=== PATIENT | female | born 1935 | race Caucasian/White ===

== ENCOUNTER 2021-09-15 01:49 | Emergency (ER) | payer MEDICARE, OTHER ==
[~2021-09-15] VITALS: Ht 157.5 cm; Wt 50.4 kg
[~2021-09-15 01:49] MED LIST: ATORVASTATIN CA40 MG PO; CLOPIDOGREL75 MG PO; FEROSUL325 MG PO; LEVOTHYROXINE112 MCG PO; LOSARTAN POTASS25 MG PO; METOPROLOL SUCC25 MG PO; POTASSIUM CHLO10 ME2 PO; TORSEMIDE20 MG PO
--- OUTSIDE RECORDS SUMMARY | 2021-09-15 01:56 | XMS ---
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 EMagalie VISIT COUNT (12 MO.) [address] [place], [place] [address] TOTAL 3 NOTE: Visits indicate total known visits. ED/UCC VISIT TRACKING (12 MO.) 09/15/2021 01:49 [facility] [place] TYPE: Emergency COMPLAINT: - CHEST PAIN 09/13/2021 16:46 [facility] Amara [place] TYPE: Emergency DIAGNOSES: - Chest Pain - Dyspnea, unspecified - Shortness of Breath 02/24/2021 00:20 [facility] [place] [place] TYPE: Emergency COMPLAINT: - VOMITING DIAGNOSES: - Nausea with vomiting, unspecified INPATIENT VISIT TRACKING (12 MO.) No inpatient visits to display in this time frame [email or web address]
[2021-09-15] MEDS ORDERED: HYDROCODON-ACE1 EA10 PO (03:21)
[2021-09-15] MEDS ORDERED: SOAANZ40 MG PO (03:21)
[2021-09-15] MEDS ORDERED: ONDANSETRON ODT8 MG PO (03:30)
--- NOTE | 2021-09-16 13:43 | EKG ---
[facility] [address] [facility] [place] [address] Signed Sinus rhythm with premature supraventricular complexes and with occasional premature ventricular complexes Minimal voltage criteria for LVH, may be normal variant ( [place] product ) Prolonged QT Abnormal ECG When compared with ECG of 24-FEB-2021 00:33, No significant change was found Confirmed by RENATE CASAS MD ([id number]) on 09/16/2021 1:43:45 PM Electronically Signed By: RENATE CASAS MD 09/16/21 1343 PATIENT NAME: GOLDIE HILTON Electrocardiogram DATE OF : 33 PHYSICIAN: RENATE CASAS MD REPORT #: [id number] REPORT IS CONFIDENTIAL AND NOT TO BE RELEASED WITHOUT AUTHORIZATION
== END 2021-09-15 05:38 | disposition home or self-care (01) ==
LOC: ED 01:49
DX: I50.9 Heart failure, unspecified (principal); K92.2 Gastrointestinal hemorrhage, unspecified; Z51.5 Encounter for palliative care; E03.9 Hypothyroidism, unspecified; E11.9 Type 2 diabetes mellitus without complications; I25.10 Atherosclerotic heart disease of native coronary artery without angina pectoris; Z79.899 Other long term (current) drug therapy
CPT/HCPCS: 36415; 71045; 80053; 83735; 83880; 84484; 85025; 85610; 85730; 87502; 93005; 93010; 96374; 96375; 99285-25; A9270; J1940; J2270; J2405; U0003

== ENCOUNTER 2021-09-15 08:42 | Emergency (ER) | payer MEDICARE, OTHER ==
[~2021-09-15] VITALS: Ht 157.5 cm; Wt 50.3 kg
[~2021-09-15 08:42] MED LIST changes: +HYDROCODON-ACE1 EA10 PO; +ONDANSETRON ODT8 MG PO; +SOAANZ40 MG PO
--- OUTSIDE RECORDS SUMMARY | 2021-09-15 08:50 | XMS ---
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 EMagalie VISIT COUNT (12 MO.) [address] [place], [place] [address] TOTAL 4 NOTE: Visits indicate total known visits. ED/UCC VISIT TRACKING (12 MO.) 09/15/2021 08:43 [facility] TYPE: Emergency COMPLAINT: - FALL, MULTIPLE INJURIES 09/15/2021 01:49 [facility] [place] TYPE: Emergency COMPLAINT: - CHEST PAIN 09/13/2021 16:46 [facility] [place] TYPE: Emergency DIAGNOSES: - Chest Pain - Dyspnea, unspecified - Shortness of Breath 02/24/2021 00:20 [facility] [place] TYPE: Emergency COMPLAINT: - VOMITING DIAGNOSES: - Nausea with vomiting, unspecified INPATIENT VISIT TRACKING (12 MO.) No inpatient visits to display in this time frame [email or web address]
--- NOTE | 2021-09-16 13:44 | EKG ---
[facility] [address] [facility] [place] [address] Signed Atrial fibrillation Minimal voltage criteria for LVH, may be normal variant ( [place] product ) Abnormal ECG When compared with ECG of 15-SEP-2021 02:24, (Unconfirmed) Atrial fibrillation has replaced Sinus rhythm Nonspecific T wave abnormality, worse in Lateral leads Confirmed by RENATE CASAS MD ([id number]) on 09/16/2021 1:43:48 PM Electronically Signed By: RENATE CASAS MD 09/16/21 1344 PATIENT NAME: GOLDIE HILTON Electrocardiogram DATE OF : 33 PHYSICIAN: RENATE CASAS MD REPORT #: [id number] REPORT IS CONFIDENTIAL AND NOT TO BE RELEASED WITHOUT AUTHORIZATION
== END 2021-09-15 11:50 | disposition home or self-care (01) ==
LOC: ED 08:42
DX: S00.83XA Contusion of other part of head, initial encounter (principal); I50.9 Heart failure, unspecified; D64.9 Anemia, unspecified; E03.9 Hypothyroidism, unspecified; E11.9 Type 2 diabetes mellitus without complications; I25.10 Atherosclerotic heart disease of native coronary artery without angina pectoris; Z79.899 Other long term (current) drug therapy; Z79.01 Long term (current) use of anticoagulants; W18.30XA Fall on same level, unspecified, initial encounter
CPT/HCPCS: 36415; 70450; 71045; 72125; 73590; 80053; 81001; 83880; 84484; 85025; 93005; 93010; 99284-25